=== PATIENT | male | born 1950 | race Caucasian/White ===

== ENCOUNTER 2018-08-20 21:54 | Emergency (ER) | payer OTHER ==
[~2018-08-20] VITALS: Ht 175.3 cm; Wt 111.1 kg
[2018-08-20] MEDS ORDERED: DESYREL150 MG (22:22)
[2018-08-21] MEDS ORDERED: NABUMETONE 750750 M1 PO (00:20)
[2018-08-21] MEDS ORDERED: NORCO 5-325 TA1 EACH PO (00:20)
[2018-08-21 00:31] VITALS: BP 145/82
== END 2018-08-21 00:31 | disposition home or self-care (01) ==
LOC: M.ERS 21:54
DX: S32.020A Wedge compression fracture of second lumbar vertebra, initial encounter for closed fracture (principal); S81.811A Laceration without foreign body, right lower leg, initial encounter; S00.83XA Contusion of other part of head, initial encounter; S80.812A Abrasion, left lower leg, initial encounter; Z88.8 Allergy status to other drugs, medicaments and biological substances; W01.0XXA Fall on same level from slipping, tripping and stumbling without subsequent striking against object, initial encounter; Y92.89 Other specified places as the place of occurrence of the external cause; Y93.89 Activity, other specified; Y99.8 Other external cause status